=== PATIENT | female | born 1990 | race Caucasian/White ===

== ENCOUNTER 2019-08-08 07:52 | Inpatient (IN) ==
[2019-08-08] MEDS: LACTATED RINGER'S 1,000 ML IV PRN ×3 (07:55→11:11)
[2019-08-08] MEDS ORDERED: OXYTOCIN 30 UNITS/500 ML BAG IV PRN ×2 (07:57→13:19)
--- NOTE | 2019-08-08 08:01 | History & Physical Report ---
Date of Service August 08, 2019 Assessment & Plan (1) Normal labor: 28 yo F here for labor at 38.3weeks, dilated to 7cm/100% effaced/0 station on arrival. - For expected vaginal delivery. Plan was for epidural however given quick progression Fentanyl administered. - AROM performed with clear fluid, pt to delivery presently. - Continue to monitor BP and glucose checks. History of Present Illness Primary Care Provider: Manny Charlton is a 28 yo F ; dating parameters 38.1w by US; came in for contractions beginning late last night that became more frequent and painful into the m orning; complications with GDM on insulin therapy and asa therapy for preeclampsia in a previous . Attended OB appointments with [facility], [place]. Reports contractions every 3-4 minutes; feels movement; no fluid loss or vaginal bleeding. No shortness of breath or chest pain, no headaches or dizziness, no fevers or chills. Labs (01/18/2019; 08/08/2019): Blood type: O+ Antibody screen: negative Hgb: 12.8 Hct: 36.6% WBC: 11.87 Plt: 151 Rubella status: immune VDLR/RPR: nonreactive Gonorrhea: negative Chlamydia: negative HIV: negative GBS: negative HbSAg: negative Allergies Allergy/AdvReac Type Severity Reaction Status Date / Time buspirone [From BuSpar] AdvReac Intermediate Dizziness Verified 08/05/19 10:52 Home Medications Home Medications Medication Instructions Recorded Confirmed Type acetone (urine) test #50 ea 02/17/19 08/05/19 Rx blood sugar diagnostic #150 ea 02/17/19 08/05/19 Rx lancets #150 ea 02/17/19 08/05/19 Rx insulin syringe-needle U-100 0.3 #120 ea 06/14/19 08/05/19 Rx mL 31 gauge x 5/16" blood-glucose meter #1 ea 06/20/19 08/05/19 Rx insulin syringe-needle U-100 0.5 #90 ea 06/30/19 08/05/19 Rx mL 31 gauge x 5/16" insulin NPH isoph U-100 human 40 unit SUBCUT DAILY 08/01/19 08/08/19 History insulin lispro 15 unit SUBCUT AC 08/01/19 08/08/19 History vit-iron fum-folic ac 1 tab PO DAILY 08/01/19 08/08/19 History [ Vitamin] Patient History Medical History Anxiety No medications currently Depression No medications currently. Unsure of what she took prior to becoming . Gestational diabetes Insulin controlled History of varicella Pre-eclampsia Last Surgical History History of wisdom tooth extraction Family History Brother Depression Mother Depression Diabetes Hypertension Dyslipidemia Sister Depression Aunt Breast cancer paternal Grandmother (Paternal) Breast cancer Grandfather (Maternal) Colorectal cancer Social History (Updated 02/25/19 @ 10:40 by Hodan Dobson) Preferred Language: Romansh Communication Ability: Effective Production Control Specialist Required: No Beliefs That Will Affect Care: None marital status: Current Living Situation: Spouse Current Living Situation Comment: and 3 daughters Feels Safe at Home: Yes Smoking Status: Never smoker Tobacco Type: cigarettes ; Cigarettes Per Day: 15 ; Second Hand Exposure: No ; Hx Alcohol Use: No Hx Substance Use: No Review of Systems Constitutional: denies fever, chills, sweats, headache Respiratory: denies SOB, difficulty breathing Cardiac: denies CP, chest palpitations, chest pressure Breast: denies breast pain : denies dysuria Physical Exam Physical Exam: General: patient is alert and oriented, in NAD Cardiac: +S1/S2, no murmurs rubs or gallops Respiratory: lungs CTA b/l, anteriorly and posteriorly, no wheezes rales or rhonchi, no increased work of breathing, symmetric chest rise, no respiratory distress Abdomen: soft, NT, +bowel sounds Uterus: uterine fundus firm. Lower Extremities: no LE edema or swelling, no deep calf pain, Elva's sign negative b/l Constitutional: WD/WN, vitals as above Respiratory: normal respiratory effort, lungs clear to auscultation Cardiovascular: RRR, no murmur, no edema Gastrointestinal (Abdomen): normal bowel sounds, soft, nontender, no hepatosplenomegaly Skin: no rashes, warm and dry Psychiatric: A+Ox3, euthymic affect Genitourinary: Manual OB Exam: + cervical dilation 7 cm, + cervical effacement 100% and + station (bulging membranes) 0 OB Exam Monitor Tracing: + external FHT monitor used (140s HR), + external uterine monitor used, + category I and + normal FHT variability Results & Data Laboratory Results Laboratory Results - last 24 hr 08/08/19 08/08/19 08:01 08:11 WBC 11.87 H RBC 3.93 L Hgb 12.8 Hct 36.6 L MCV 93.1 MCH 32.6 MCHC 35.0 RDW Std Deviation 43.2 RDW Coeff of Ravin 12.7 Plt Count 151 MPV 12.4 H POC Glucose 88 Medications Administered Current Medications Lactated Ringer's (Lr) 1,000 mls @ 125 mls/hr IV .Q8H PRN; Protocol PRN Reason: L&D Protocol Stop: 08/10/19 07:56 Oxytocin (Pitocin) 30 units in 500 mls @ 333.333 mls/hr IV .Q1H30M PRN; Protocol PRN Reason: Bleeding Control Stop: 09/07/19 07:56 Supervising Physician Co-Signing Physician Notes Resident Physician Supervision Note: I was present with Dr. Cobb during the history and exam. I discussed the case with the resident and agree with the findings and plan as documented in the note. Any exceptions or clarifications are listed here: Anticipate . AROM performed for clear fluid after intrathecal anesthesia. Documented By: Apolonia Perales DO
[2019-08-08] MEDS ORDERED: BUPIVACAINE 0.25% 30 ML VIAL ONE ×2 (08:04→10:02)
[2019-08-08] MEDS ORDERED: fentaNYL citrate 100 MCG/2 ML VIAL ONE ×2 (08:04→10:02)
[2019-08-08] MEDS ORDERED: ePHEDrine sulfate 50 MG/ML AMP ONE ×2 (08:04→10:02)
[2019-08-08] MEDS ORDERED: fentaNYL 2MCG/ML ROPIV 1.25MG/ML 100 ML BAG EPI ONE ×2 (08:05→10:02)
[2019-08-08 08:13] LABS: Hematocrit (blood only) 36.6 % (37-47); Hemoglobin 12.8 g/dL (12.0-16.0); Mean Corpuscular Hemoglobin 32.6 pg (25-34); Mean Corpuscular Volume 93.1 fL (80-100); Mean Platelet Volume 12.4 fL (7.4-10.4); Platelet Count 151 K/uL (130-400); RDW Coefficient of Variation 12.7 % (11.5-14.5); RDW Standard Deviation 43.2 fL (36.4-46.3); Red Blood Count 3.93 M/uL (4.2-5.4); White Blood Count 11.87 K/uL (4.8-10.8)
--- NOTE | 2019-08-08 08:34 | Anesthesiology Consultation ---
Date of Service August 08, 2019 Assessment & Plan Chart Review Chart Review: Patient NOT seen in Pre Admission Testing and Acceptable Risk for Labor Epidural Consults Requested none ASA ASA2 Proposed Anesthesia Anesthesia Type: Labor Epidural and CSE Risk / Benefits Reviewed With: PT / POA / Parent / Guardian, Accepts Plan and Informed Consent Obtained History Height/Weight Height: 5 ft 4 in Weight: 79.379 kg Allergies Allergy/AdvReac Type Severity Reaction Status Date / Time buspirone [From BuSpar] AdvReac Intermediate Dizziness Verified 08/05/19 10:52 Medications Home Medications Medication Instructions Recorded Confirmed Last Taken acetone (urine) test #50 ea 02/17/19 08/05/19 Unknown blood sugar diagnostic #150 ea 02/17/19 08/05/19 Unknown lancets #150 ea 02/17/19 08/05/19 Unknown insulin syringe-needle U-100 0.3 #120 ea 06/14/19 08/05/19 Unknown mL 31 gauge x 5/16" blood-glucose meter #1 ea 06/20/19 08/05/19 Unknown insulin syringe-needle U-100 0.5 #90 ea 06/30/19 08/05/19 Unknown mL 31 gauge x 5/16" aspirin [Aspirin Low Dose] 81 mg PO DAILY 08/01/19 08/05/19 07/30/19 08:00 insulin NPH isoph U-100 human 40 unit SUBCUT DAILY 08/01/19 08/05/19 07/31/19 21:00 insulin lispro 8 unit SUBCUT AC 08/01/19 08/05/19 07/31/19 17:00 vit-iron fum-folic ac 1 tab PO DAILY 08/01/19 08/05/19 07/31/19 21:00 [ Vitamin] NPO Date Last Intake of Fluids: 08/08/19 Time Last Intake of Fluids: 06:30 Date Last Intake of Solids: 08/07/19 Time Last Intake of Solids: 19:00 Past Medical History Medical History Anxiety No medications currently Depression No medications currently. Unsure of what she took prior to becoming . Gestational diabetes Insulin controlled History of varicella Pre-eclampsia Last Exercise / Class Metabolic Activity II 4-5 Yardwork/Stairs/Walk up hill Past Family History Family History Brother Depression Mother Depression Diabetes Hypertension Dyslipidemia Sister Depression Aunt Breast cancer paternal Grandmother (Paternal) Breast cancer Grandfather (Maternal) Colorectal cancer Past Surgical History Surgical History History of wisdom tooth extraction Past Anesthesia History No Hx of Anesthesia Complications and No Family Hx of Anesthesia Complications History of PONV No Hx of PONV and No Hx of Motion Sickness Social History Smoking Status: Never smoker tobacco type: cigarettes Smoking cigarettes per day: 15 Hx Alcohol Use: No Hx Substance Use: No Review of Systems no chest pain or sob Physical Exam Vital Signs Last Vital Signs Pulse 95 H 08/08/19 08:31 BP 144/60 H 08/08/19 08:31 Pulse Ox 100 08/08/19 08:31 ENMT Mouth: no TMJ abnormality Thyromental Distance: > or= 3.5 Finger Breadths Mallampati Class: II Neck normal visual inspection Respiratory normal respiratory effort Auscultation: lungs clear to auscultation bilaterally Cardiovascular Rate/Rhythm: regular rate and regular rhythm Musculoskeletal Spine: normal cervical ROM Neurologic moves all extremities Psychiatric Orientation: alert and oriented x 3 Testing Laboratory Results 08/08/19 08:01 08/08/19 08:11 POC Glucose 88
[2019-08-08] MEDS ORDERED: NALOXONE HCL 0.4 MG/1 ML VIAL/CARP IV PRN (10:30)
[2019-08-08] MEDS ORDERED: fentaNYL 2MCG/ML ROPIV 1.25MG/ML 100 ML BAG EPI PRN (10:30)
[2019-08-08] MEDS ORDERED: ePHEDrine sulfate 50 MG/ML AMP IV PRN (10:30)
[2019-08-08] MEDS ORDERED: ONDANSETRON INJ 2 MG/ML 2 ML VIAL IV PRN (10:30)
[2019-08-08] MEDS ORDERED: DiphenhydrAMINE HCL 50 MG/ML VIAL IV PRN (10:30)
[2019-08-08] MEDS ORDERED: NALOXONE HCL 1 MG in SODIUM CHLORIDE 0.9% 1000ML 1,000 ML IV PRN (10:30)
[2019-08-08] MEDS ORDERED: NALBUPHINE HCL INJ 10 MG/ML AMP IV PRN (10:30)
[2019-08-08] MEDS ORDERED: BENZOCAINE 20% AER SPR 82.5 GM CAN EXT PRN (13:19)
[2019-08-08] MEDS ORDERED: SUPERCREAM 0.870% 15 GM JAR EXT PRN (13:19)
[2019-08-08] MEDS ORDERED: DIPHTHERIA/TETANUS/PERTUSSIS 0.5 ML SYR/VIAL IM ONE (13:19)
[2019-08-08] MEDS ORDERED: HYDROCORTISONE ACETATE 25 MG SUPP PR PRN (13:19)
[2019-08-08] MEDS ORDERED: bisacodyL 10 MG SUPP PR PRN (13:19)
[2019-08-08] MEDS: ACETAMINOPHEN 325 MG TAB PO PRN (13:40)
--- NOTE | 2019-08-08 14:21 | Delivery Summary ---
DATE OF OPERATION: 08/08/2019 PROCEDURE: Normal spontaneous vaginal delivery. SURGEON: Paulino Vera MD PREOPERATIVE DIAGNOSES: 1. Single intrauterine at 38 weeks 1 day gestational age. 2. A2 gestational diabetes mellitus. 3. History of preeclampsia in prior . 4. Labor with spontaneous rupture of membranes. POSTOPERATIVE DIAGNOSES: 1. Single intrauterine at 38 weeks 1 day gestational age. 2. A2 gestational diabetes mellitus. 3. History of preeclampsia in prior . 4. Labor with spontaneous rupture of membranes. 5. Status post delivery. ESTIMATED BLOOD LOSS: 300 mL. DRAINS: Straight cath for 200 mL. FLUIDS: Continuous lactated ringer. COMPLICATIONS: None. FINDINGS: Viable male with weight pending and Apgars of 8 and 9 at 1 and 5 minutes respectively. DESCRIPTION OF PROCEDURE: The patient progressed to 10 cm dilated, 100% effaced, +2 station, pushed over intact perineum with epidural anesthesia and delivered a viable male infant with weight and Apgars pending. Head of the delivered in KARRI position, rest into right transverse. No nuchal cord was noted. Body and shoulders quickly followed. was noted to be vigorous shortly after delivery. A 1-minute delayed cord clamping was initiated for which the cord was double clamped and cut and remained on maternal abdomen and was still noted to be vigorous. Cord blood was then obtained. Attention was then turned to deliver the placenta, delivered intact, 3-vessel cord, gentle cord traction. On inspection of perineum, vagina, and cervix were noted to be no lacerations. Needle, sponge and instrument counts were correct at the completion of the case. Both mother and stable in the immediate post-delivery. I attest to the content of the Intraoperative Record and any orders documented therein. Any exception s are noted below.
--- NOTE | 2019-08-08 14:25 | Anesthesia Procedure Note ---
Date of Service August 08, 2019 Anesthesia Post Epidural Note Vital Signs Vital Signs: Temp Pulse Resp BP Pulse Ox 36.4 C L 99 H 18 100/66 97 08/08/19 07:54 08/08/19 14:23 08/08/19 13:25 08/08/19 14:23 08/08/19 12:41 Pain Intensity Bilateral Abdomen: Pain Intensity: 0 Notes Mental Status: alert / awake / arousable and participated in evaluation Nausea / Vomiting: adequately controlled Pain: adequately controlled Airway Patency, RR, SpO2: stable & adequate BP & HR: stable & adequate Hydration State: stable & adequate Neuraxial Anesthesia: was administered and sensory block is resolving Anesthetic Complications: no major complications apparent and Pt Satisfied with anesthetic care Epidural: Removed without complications and With tip intact
[2019-08-08] MEDS: IBUPROFEN 600 MG TAB PO PRN ×2 (18:33→22:09)
[2019-08-08] MEDS: DOCUSATE SODIUM 100 MG CAP PO SCH (20:26)
[2019-08-09] MEDS: ACETAMINOPHEN 325 MG TAB PO PRN ×3 (00:50→15:46)
[2019-08-09] MEDS: IBUPROFEN 600 MG TAB PO PRN ×3 (04:02→23:16)
--- NOTE | 2019-08-09 06:21 | Obstetrical Progress Note ---
Date of Service <Juani Coker - Last Filed: 08/09/19 07:05> August 09, 2019 Assessment & Plan <Juani John Paul, DO - Last Filed: 08/09/19 07:05> (1) Encounter for care and examination after delivery: 28 yo F PPD #1 following vaginal delivery at 38.1w, doing well and without complaints this morning. - PPD #1. - Blood type O+, Rubella immune. - Feels well, ambulating well, voiding well. - Will continue routine care. - Following d/c will have f/u in 6 weeks. Subjective <Juani Coker DO - Last Filed: 08/09/19 07:05> Latesha is a 28 yo female ; PPD # 1 following vaginal delivery at 38.1 weeks; doing well this AM; no abdominal cramping/pain; voiding well; tolerating meals overnight, able to ambulate some within the room. Review of Systems Constitutional: denies fever, chills, sweats, headache Respiratory: denies SOB, difficulty breathing Cardiac: denies CP, chest palpitations, chest pressure Breast: denies breast pain : denies dysuria Physical Exam <Juani YoonDO janelle - Last Filed: 08/09/19 07:05> General: patient is alert and oriented, in NAD Cardiac: +S1/S2, no murmurs rubs or gallops Respiratory: lungs CTA b/l, anteriorly and posteriorly, no wheezes rales or rhonchi, no increased work of breathing, symmetric chest rise, no respiratory distress Abdomen: soft, NT, +bowel sounds Uterus: uterine fundus firm, palpable below the level of the umbilicus Lower Extremities: no LE edema or swelling, no deep calf pain, Elva's sign negative b/l Results & Data <Juanivic YoonDO janelle - Last Filed: 08/09/19 07:05> Vital Signs (Past 12 Hours) Vital Signs Temp Pulse Resp BP 08/09/19 03:55 36.6 C 79 16 105/60 08/09/19 00:45 36.4 C L 81 18 103/62 08/08/19 20:40 36.7 C 74 18 104/63 Laboratory Results Laboratory Results - last 24 hr 08/08/19 08/08/19 08/08/19 08:01 08:11 12:07 WBC 11.87 H RBC 3.93 L Hgb 12.8 Hct 36.6 L MCV 93.1 MCH 32.6 MCHC 35.0 RDW Std Deviation 43.2 RDW Coeff of Ravin 12.7 Plt Count 151 MPV 12.4 H POC Glucose 88 80 08/09/19 06:16 WBC 14.55 H RBC 3.62 L Hgb 11.6 L Hct 34.2 L MCV 94.5 MCH 32.0 MCHC 33.9 RDW Std Deviation 44.5 RDW Coeff of Ravin 12.9 Plt Count 176 MPV 12.2 H POC Glucose Medications Administered Current Medications Acetaminophen (Tylenol) 650 mg PO Q6H PRN PRN Reason: Pain/CHANDRA/Fever Stop: 09/07/19 13:18 Last Admin: 08/09/19 06:06 Dose: 650 mg Documented by: Benzocaine (Dermoplast Pain Relieving [place]) 1 appln EXT PRN PRN PRN Reason: Perineal Discomfort Stop: 09/07/19 13:18 Bisacodyl (Dulcolax) 5 mg PO 1999 [facility] Stop: 08/09/19 20:01 Bisacodyl (Dulcolax) 10 mg [place] DAILY PRN PRN Reason: No BM on 2nd post- day Stop: 09/07/19 13:18 Cocaine HCl (Supercream 0.870%) 1 gm EXT BID PRN PRN Reason: Hemorrhoidal Inflammation Stop: 08/22/19 13:18 Diphenhydramine HCl (Benadryl) 25 mg IV Q6H PRN PRN Reason: Itching Stop: 08/09/19 10:29 Docusate Sodium (Colace) 100 mg PO DAILY@ [facility] Stop: 09/07/19 20:59 Last Admin: 08/08/19 20:26 Dose: 100 mg Documented by: Ephedrine Sulfate (Ephedrine Sulfate) 10 mg IV Q5M PRN PRN Reason: Hypotension Stop: 08/09/19 10:29 Hydrocortisone (Anusol Hc) 25 mg [place] BID PRN PRN Reason: Hemorrhoidal Inflammation Stop: 09/07/19 13:18 Lactated Ringer's (Lr) 1,000 mls @ 125 mls/hr IV .Q8H PRN; Protocol PRN Reason: L&D Protocol Stop: 08/10/19 07:56 Last Admin: 08/08/19 11:11 Dose: 125 mls/hr Documented by: Oxytocin (Pitocin) 30 units in 500 mls @ 333.333 mls/hr IV .Q1H30M PRN; Protocol PRN Reason: Bleeding Control Stop: 09/07/19 07:56 Last Admin: 08/08/19 12:50 Dose: 59.94 units/hr, 999 mls/hr Documented by: Naloxone HCl 1 mg/ Sodium (Chloride) 1,002.5 mls @ 50 mls/hr IV .Q20H3M PRN PRN Reason: itching or nausea Stop: 08/09/19 10:29 Oxytocin (Pitocin) 30 units in 500 mls @ 333.333 mls/hr IV .Q1H30M PRN; Protocol PRN Reason: Bleeding Control Stop: 09/07/19 13:18 Ibuprofen (Motrin) 600 mg PO Q4H PRN PRN Reason: Pain/CHANDRA/Cramping/Fever Stop: 09/07/19 13:18 Last Admin: 08/09/19 04:02 Dose: 600 mg Documented by: Nalbuphine HCl (Nubain) 5 mg IV Q10M PRN PRN Reason: itching or nausea Stop: 08/09/19 10:29 Naloxone HCl (Narcan) 0.1 mg IV UD PRN PRN Reason: Respiratory Depression Stop: 08/09/19 10:29 Ondansetron HCl (Zofran) 4 mg IV Q6H PRN PRN Reason: Nausea And Vomiting Stop: 08/09/19 10:29 Last Admin: 08/08/19 12:08 Dose: 4 mg Documented by: Prenat Multivit/[place]/Iron/Folic Ac ( Vitamin) 1 tab PO DAILY@08 [place] Stop: 09/08/19 07:59 Ropivacaine (Epidural (L&D)) 100 ml EPI PRN PRN; Protocol PRN Reason: Pain R/T Labor Stop: 08/09/19 10:29 <Apolonia Perales, DO - Last Filed: 08/09/19 08:31> Co-Signing Physician Notes Resident Physician Supervision Note: I was present with Dr. Cobb during the history and exam. I discussed the case with the resident and agree with the findings and plan as documented in the note. Any exceptions or clarifications are listed here: PPD#1 doing well. Anticipate DC home tomorrow. Documented By: Apolonia Perales DO Resident Activity Tracking <Juani Coker DO - Last Filed: 08/09/19 07:05> Resident Involvement: Resident Care Provided Care Provided: OB Delivery
[2019-08-09 06:42] LABS: Hematocrit (blood only) 34.2 % (37-47); Hemoglobin 11.6 g/dL (12.0-16.0); Mean Corpuscular Hgb Conc 33.9 g/dL (32-36); Mean Corpuscular Volume 94.5 fL (80-100); Mean Platelet Volume 12.2 fL (7.4-10.4); Platelet Count 176 K/uL (130-400); RDW Coefficient of Variation 12.9 % (11.5-14.5); RDW Standard Deviation 44.5 fL (36.4-46.3); Red Blood Count 3.62 M/uL (4.2-5.4); White Blood Count 14.55 K/uL (4.8-10.8)
[2019-08-09] MEDS: PRENATAL VITAMIN 1 TAB PO SCH (08:46)
[2019-08-09] MEDS: DOCUSATE SODIUM 100 MG CAP PO SCH ×2 (08:46→20:18)
--- NOTE | 2019-08-09 09:23 | Anesthesia Procedure Note ---
Date of Service August 09, 2019 asked to see patient re possible post dural puncture headache - complains only of a little headache when she flexes her neck all the way but looks comfortable and has been able to get up to the bathroom without problems. I talked with her that I didnt think this was a post dural puncture headache, or if it is it is so mild I would recommend medical therapy. I also told her to let us know if it worsens. Anesthesia Post Epidural Note Vital Signs Vital Signs: Temp Pulse Resp BP Pulse Ox 36.6 C 79 16 105/60 97 08/09/19 03:55 08/09/19 03:55 08/09/19 03:55 08/09/19 03:55 08/08/19 12:41 Pain Intensity Bilateral Abdomen: Pain Intensity: 0 Notes Mental Status: alert / awake / arousable and participated in evaluation Nausea / Vomiting: adequately controlled Pain: adequately controlled Airway Patency, RR, SpO2: stable & adequate BP & HR: stable & adequate Hydration State: stable & adequate Neuraxial Anesthesia: was administered and sensory block is resolving Anesthetic Complications: no major complications apparent Epidural: Removed without complications and With tip intact
[2019-08-09] MEDS ORDERED: bisacodyL 5 MG TABEC PO SCH (20:00)
--- NOTE | 2019-08-10 05:59 | Obstetrical Progress Note ---
Date of Service <Juani Coker DO - Last Filed: 08/10/19 06:26> August 10, 2019 Assessment & Plan <Juani Coker DO - Last Filed: 08/10/19 06:26> (1) Encounter for care and examination after delivery: 28 yo F PPD #2 following vaginal delivery at 38.1w, doing well and without complaints this morning. - PPD #2. - Blood type O+, Rubella immune. - Feels well, ambulating well, voiding well. - For discharge today. - Following d/c will have f/u in 6 weeks. - Went over discharge instructions and answered all patient questions. Subjective <Juani Coker DO - Last Filed: 08/10/19 06:26> Latesha is a 28 yo female ; PPD # 2 following vaginal delivery at 38.1 weeks; doing well this AM; no abdominal cramping/pain; voiding well; tolerating meals overnight, able to ambulate some within the room. Eager for discharge to "get back home to my three girls". Review of Systems Constitutional: denies fever, chills, sweats, headache Respiratory: denies SOB, difficulty breathing Cardiac: denies CP, chest palpitations, chest pressure Breast: denies breast pain : denies dysuria Physical Exam <Juani Coker DO - Last Filed: 08/10/19 06:26> General: patient is alert and oriented, in NAD Cardiac: +S1/S2, no murmurs rubs or gallops Respiratory: lungs CTA b/l, anteriorly and posteriorly, no wheezes rales or rhonchi, no increased work of breathing, symmetric chest rise, no respiratory distress Abdomen: soft, NT, +bowel sounds Uterus: uterine fundus firm, palpable below the level of the umbilicus Lower Extremities: no LE edema or swelling, no deep calf pain, Elva's sign negative b/l Results & Data <Juani Coker DO - Last Filed: 08/10/19 06:26> Vital Signs (Past 12 Hours) Vital Signs Temp Pulse Resp BP 08/09/19 23:10 36.6 C 76 16 116/68 Laboratory Results Laboratory Results - last 24 hr 08/09/19 08/10/19 06:16 05:53 WBC 14.55 H RBC 3.62 L Hgb 11.6 L 11.5 L Hct 34.2 L 33.8 L MCV 94.5 MCH 32.0 MCHC 33.9 RDW Std Deviation 44.5 RDW Coeff of Ravin 12.9 Plt Count 176 MPV 12.2 H Medications Administered Current Medications Acetaminophen (Tylenol) 650 mg PO Q6H PRN PRN Reason: Pain/CHANDRA/Fever Stop: 09/07/19 13:18 Last Admin: 08/09/19 15:46 Dose: 650 mg Documented by: Benzocaine (Dermoplast Pain Relieving [place]) 1 appln EXT PRN PRN PRN Reason: Perineal Discomfort Stop: 09/07/19 13:18 Bisacodyl (Dulcolax) 10 mg [place] DAILY PRN PRN Reason: No BM on 2nd post- day Stop: 09/07/19 13:18 Cocaine HCl (Supercream 0.870%) 1 gm EXT BID PRN PRN Reason: Hemorrhoidal Inflammation Stop: 08/22/19 13:18 Last Admin: 08/09/19 08:47 Dose: 1 gm Documented by: Docusate Sodium (Colace) 100 mg PO DAILY@ [place] Stop: 09/07/19 20:59 Last Admin: 08/09/19 20:18 Dose: 100 mg Documented by: Hydrocortisone (Anusol Hc) 25 mg [place] BID PRN PRN Reason: Hemorrhoidal Inflammation Stop: 09/07/19 13:18 Lactated Ringer's (Lr) 1,000 mls @ 125 mls/hr IV .Q8H PRN; Protocol PRN Reason: L&D Protocol Stop: 08/10/19 07:56 Last Admin: 08/08/19 11:11 Dose: 125 mls/hr Documented by: Oxytocin (Pitocin) 30 units in 500 mls @ 333.333 mls/hr IV .Q1H30M PRN; Protocol PRN Reason: Bleeding Control Stop: 09/07/19 07:56 Last Admin: 08/08/19 12:50 Dose: 59.94 units/hr, 999 mls/hr Documented by: Oxytocin (Pitocin) 30 units in 500 mls @ 333.333 mls/hr IV .Q1H30M PRN; Protocol PRN Reason: Bleeding Control Stop: 09/07/19 13:18 Ibuprofen (Motrin) 600 mg PO Q4H PRN PRN Reason: Pain/CHANDRA/Cramping/Fever Stop: 09/07/19 13:18 Last Admin: 08/09/19 23:16 Dose: 600 mg Documented by: [place] Multivit/[place]/Iron/Folic Ac ( Vitamin) 1 tab PO DAILY@08 [place] Stop: 09/08/19 07:59 Last Admin: 08/09/19 08:46 Dose: 1 tab Documented by: <Teresa Bergman MD - Last Filed: 08/10/19 06:56> Co-Signing Physician Notes I have reviewed the resident's note and examined the patient myself, and agree with the note above. Resident Activity Tracking <Juani Coker DO - Last Filed: 08/10/19 06:26> Resident Involvement: Resident Care Provided Care Provided: OB Delivery
[2019-08-10 06:17] LABS: Hematocrit (blood only) 33.8 % (37-47); Hemoglobin 11.5 g/dL (12.0-16.0)
[2019-08-10] MEDS: PRENATAL VITAMIN 1 TAB PO SCH (08:50)
[2019-08-10] MEDS: DOCUSATE SODIUM 100 MG CAP PO SCH (08:50)
== END 2019-08-10 11:05 | disposition home or self-care (01) | DRG 807 ==
LOC: 4S1 07:52 → 4S2 15:20